=== PATIENT | female | born 1970 | race Caucasian/White ===

== ENCOUNTER 2016-11-04 14:58 | Emergency (ER) | payer OTHER ==
[~2016-11-04] VITALS: Ht 180.3 cm; Wt 136.1 kg
[~2016-11-04 14:58] MED LIST: NAPROSYN500 M1 PO; NORCO 5-325 TA1 EACH PO; PERCOCET 325 MG1 TA2 PO; ZOFRAN4 M2 PO
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
[2016-11-04] MEDS ORDERED: MACROBID 100 M100 MG PO (17:43)
[2016-11-04] MEDS ORDERED: PYRIDIUM100 M1 PO (17:43)
[2016-11-04 17:51] VITALS: BP 134/74
== END 2016-11-04 18:02 ==
LOC: ERH 14:58
DX: N39.0 Urinary tract infection, site not specified (principal)
CPT/HCPCS: 81001; 87086

== ENCOUNTER 2017-11-05 08:50 | Emergency (ER) | payer OTHER ==
[~2017-11-05] VITALS: Ht 180.3 cm; Wt 136.1 kg
[~2017-11-05 08:50] MED LIST changes: +MACROBID 100 M100 MG PO; +PYRIDIUM100 M1 PO
--- NOTE | 2017-11-05 11:19 | CT SCAN REPORT ---
EXAMINATION: CT HEAD WITHOUT CONTRAST CLINICAL INFORMATION: 47-year-old woman with headache. COMPARISON: 04/03/[address] TECHNIQUE: Contiguous axial imaging was performed from the skull base to vertex without intravenous administration of contrast. DLP: 684 mGy-cm FINDINGS: There is no evidence of acute intracranial hemorrhage or territorial infarction. No abnormal mass effect or midline shift is seen. Uribe to white matter differentiation is well preserved. No extra-axial fluid collections are identified. The ventricles are normal in size. There is no abnormal attenuation within the brain parenchyma. The osseous structures and soft tissues are normal. The mastoid air cells and visualized portions of the paranasal sinuses are well aerated. IMPRESSION: No acute intracranial pathology.
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
[2017-11-05 12:41] LABS: ABSOLUTE BASOPHIL COUNT 0 /CUMM (0.0-0.2); ABSOLUTE EOSINOPHIL COUNT 0.1 /CUMM (0.0-0.7); ABSOLUTE MONOCYTE COUNT 0.7 /CUMM (0.10-0.60); BASOPHIL % 0.3 % (0.0-2.0); EOSINOPHIL % 1.2 % (0-5); GRANULOCYTE % 73.9 % (42.2-75.2); HEMATOCRIT 41.7 % (37-47); MEAN CORPUSCULAR HGB 29.3 PG (27.0-31.0); MEAN PLATELET VOLUME 7.8 FL (7.4-10.4); PLATELET COUNT 237 /CUMM (130-400); RBC DISTRIBUTION WIDTH 13.8 % (11.5-14.5); RED BLOOD CELL CT 4.69 /CUMM (4.20-5.40); WHITE BLOOD CELL COUNT 10.8 /CUMM (4.8-10.8)
--- NOTE | 2017-11-05 14:37 | CT SCAN REPORT ---
EXAMINATION: CT ANGIOGRAM BRAIN CLINICAL INFORMATION: 47-year-old woman with occipital headache. Exertion. Evaluate for intracranial aneurysm. COMPARISON: 11/05/[address] TECHNIQUE: Test bolus sequences followed by intravenous administration 95 mL of Optiray 320. Helical imaging was performed in the axial plane from the skull base to the vertex. A delayed postcontrast CT of the brain was also performed. The data was processed at the radiology technologist's workstation for generation of MIP sequences. Angled MIPs and volume rendered reformatted images were also generated at an offline 3D workstation. Stenoses are assessed in accordance with NASCET criteria unless otherwise indicated. DLP: 1858 mGy-cm FINDINGS: Brain: No intracranial mass, hemorrhage, extra-axial collection, or midline shift is apparent. No pathologic intra-axial enhancement or regional oligemia is visualized. The paranasal sinuses remain well aerated. Brain CTA: There is normal opacification of major intracranial arteries. No focal flow-limiting stenosis, discrete proximal large artery occlusion, or saccular intradural aneurysm is identified. Timing of the contrast allows assessment of the major dural venous sinuses, which all opacify normally. IMPRESSION: Normal brain CT/CTA.
[2017-11-05] MEDS ORDERED: MOBIC15 M1 PO (14:52)
[2017-11-05] MEDS ORDERED: ZEBUTAL 50-3251 EACH PO (14:52)
[2017-11-05] MEDS ORDERED: MEDROL4 M2 PO (14:52)
[2017-11-05 15:08] VITALS: BP 105/62
== END 2017-11-05 15:10 ==
LOC: ERH 08:50
PROVIDERS: Physician Assistant
DX: G43.909 Migraine, unspecified, not intractable, without status migrainosus (principal)

== ENCOUNTER → 2018-02-18 | Day surgery (SDC) | payer OTHER ==
[~2018-02-18] VITALS: Ht 180.3 cm; Wt 141.5 kg
[~2018-02-18] MED LIST changes: +MEDROL4 M2 PO; +MOBIC15 M1 PO; +ZEBUTAL 50-3251 EACH PO
--- NOTE | 2018-02-18 07:53 | Operative Report ---
Operative/Inv Procedure Report Surgery Date: 02/18/18 Name of Procedure: Left ESWL Pre-Operative Diagnosis: left renal stone 7mm Post-Operative Diagnosis: same Estimated Blood Loss: scant Surgeon/Duplicating Machine Servicer: Diane Cavanaugh MD Anesthesia: local monitored anesthesi Complications: none Condition: stable Operative Indication: left renal stone Operative/Procedure Note Note: 47yo female with a hx of bilateral kidney stones with the left side with a 7mm sized stone with renal colic. She has had ESWL x2 in the past and knows what to expect. She was given the risks, benefits and alternatives and all questions were answered. Consent was signed in the holding area and she was marked on the left side. Patient was taken to the OR and placed on the operating room table in the supine position. Time out was performed. IV antibiotics were given. IV sedation was started once she was optimally positioned and the stone was visible by US. The ESWL was started with US guidance. A total of 2500 shocks were given: 250 shocks at power of 1-17, 250 shocks at power of 18 and then 2000 shocks at power of 18-19. Patient tolerated the procedure well. The stone was visibly changed at the end of the ESWl treatment. She was transferred to the recovery room in stable condition. Findings: left 7mm stone Discharge Disposition: Same Day Admissions
== END ==
LOC: STS 04:44
DX: N20.0 Calculus of kidney (principal); Z87.442 Personal history of urinary calculi; E66.01 Morbid (severe) obesity due to excess calories; Z68.42 Body mass index [BMI] 45.0-49.9, adult; M19.90 Unspecified osteoarthritis, unspecified site
CPT/HCPCS: 81025; J0690; J2250